=== PATIENT | female | born 1980 | race Caucasian/White ===

== ENCOUNTER 2023-11-11 13:05 | Outpatient (REF) | payer OTHER, SELFPAY ==
--- NOTE | ~2023-11-11 | MR_ITS ---
EXAMINATION: MR ABDOMEN WITHOUT AND WITH CONTRAST CLINICAL INFORMATION: 43-year-old female with history of heterogeneous echogenic liver abnormality on ultrasound. Patient reports intermittent pain radiating up to the right shoulder for many years. COMPARISON: The report on abdominal ultrasound exam from 10/23/2023 is provided. TECHNIQUE: MR abdomen was performed without and with use of 5 mL intravenous Gadavist gadolinium contrast. Postcontrast images are performed in multiphase dynamic sequences. Imaging was performed in 3 planes. FINDINGS: LUNG BASES: Normal. No pulmonary consolidation or pleural effusion. LIVER: Liver has normal size, contour and parenchymal signal on the noncontrast and dynamic postcontrast images. No evidence of liver mass, cirrhotic morphology or steatosis. GALLBLADDER AND BILIARY TREE: Gallbladder is physiologically distended and has normal wall thickness. No evidence of cholelithiasis, pericholecystic fluid or dilated bile ducts. PANCREAS: Normal. No edema, pancreatic ductal dilatation or mass. SPLEEN: Normal. ADRENAL GLANDS: Normal. KIDNEYS: Kidneys are normal in size and enhance symmetrically. No renal mass, hydronephrosis or perinephric edema. BOWEL AND PERITONEUM: Stomach is unremarkable. No dilated loops of bowel. No bowel wall thickening or mesenteric fat stranding. No abdominal free fluid. VASCULATURE: Normal. LYMPH NODES: No pathologic sized lymph nodes in the abdomen. SKELETAL: Unremarkable. MR/MR abdomen wo/w con IMPRESSION: * No specific source of pain is identified. * The liver has a normal appearance on this MR imaging examination. * Gallbladder is normal. No evidence of cholelithiasis, cholecystitis or biliary tract obstruction.
[2023-11-11] MEDS: gadobutroL 7.5 ML VIAL IVPUSH (14:36)
== END 2023-11-11 13:06 | disposition home or self-care (01) ==
LOC: HO.MRI 13:05
PROVIDERS: Visit Provider Family Medicine
DX: R93.2 Abnormal findings on diagnostic imaging of liver and biliary tract (principal)
CPT/HCPCS: 74183; A9585